=== PATIENT | female | born 1945 | race Caucasian/White ===

== ENCOUNTER 2022-04-23 08:57 | Outpatient (CLI) | payer OTHER | END 2022-04-23 08:58 | disposition home or self-care (01) | LOC: CSHRAD 08:57 | PROVIDERS: ATTEND Internal Medicine | DX: M54.50 Low back pain, unspecified (principal); M25.562 Pain in left knee; G89.29 Other chronic pain; M47.816 Spondylosis without myelopathy or radiculopathy, lumbar region | CPT/HCPCS: 72100 ==

== ENCOUNTER 2022-10-22 07:46 | Outpatient (CLI) | payer MEDICARE | END 2022-10-22 07:47 | disposition home or self-care (01) | LOC: CSHMRI 07:46 | PROVIDERS: ATTEND Psychiatry & Neurology Neurology | DX: G62.9 Polyneuropathy, unspecified (principal); M43.02 Spondylolysis, cervical region; M48.02 Spinal stenosis, cervical region; G95.89 Other specified diseases of spinal cord | CPT/HCPCS: 72141 ==

== ENCOUNTER 2023-01-11 09:01 | Inpatient (IN) | payer MEDICARE ==
[2023-01-11] MEDS ORDERED: Morphine 4 MG/ML VIAL ONE ×2 (09:45→12:38)
[2023-01-11 10:15] LABS: #Eosinphils 0.1 10x3/uL (0.0-0.5); #Monocytes 0.4 10x3/uL (0.0-1.1); #Neutrophils 9.3 10x3/uL (1.5-8.4); %Basophils 0.3 % (0.0-2.0); %Eosinophils 0.7 % (0.0-6.0); %Lymphocytes 8.4 % (18.0-47.0); %Monocytes 3.9 % (0.0-10.0); %Neutrophils 86.4 % (40.0-75.0); Hemoglobin 12.7 g/dL (12.0-15.5); Mean Corpuscular HGB CONC 34.9 g/dL (32.0-36.0); Mean Corpuscular Hemoglobin 30.2 pg (27.0-33.0); Mean Corpuscular Volume 86.5 fl (81.6-98.3); Mean Platelet Volume 9.4 fl (7.4-10.4); Platelet Count 313 10x3/uL (150-450); RBC Distribution Width 12.5 % (11.5-14.5); Red Blood Cell (RBC) Count 4.21 10x6/uL (3.90-5.03); White Blood Cell (WBC) Count 10.7 10x3/uL (3.5-10.5)
[2023-01-11 10:49] LABS: ALT (SGPT) 18 U/L (8-55); AST (SGOT) 23 U/L (5-34); Alkaline Phosphatase 67 U/L (40-110); Anion Gap 14 mmol/L (10-20); BUN (Urea Nitrogen) 13 mg/dL (9.8-20.1); Bilirubin, Total 1.2 mg/dL (0.2-1.2); Calc. Creatinine Clearance 0 mL/min (70-130); Calcium 8.5 mg/dL (7.8-10.44); Carbon Dioxide 17 mmol/L (23-31); Chloride 112 mmol/L (98-107); Estimated GFR 73; Globulin 2.2 g/dL (2.4-3.5); Glucose 107 mg/dL (83-110); Lipase 30 U/L (8-78); Potassium 3.3 mmol/L (3.5-5.1); Protein, Total 6.2 g/dL (5.8-8.1); Sodium 140 mmol/L (136-145)
[2023-01-11] MEDS ORDERED: Iopamidol 300 61% 100 ML VIAL FS ONE (12:02)
[2023-01-11 12:20] LABS: Bilirubin Neg (Negative); Blood, Urine Negative (Negative); Clarity Slightly Cloudy (Clear); Glucose, Urine (Dipstick) Normal (Negative); Ketone, Urine 5 mg/dL (Negative); Leukocyte Negative (Negative); Nitrite Negative (Negative); Protein, Urine (Dipstick) Negative (Neg-Trace); Specific Gravity, Urine 1.015 (1.005-1.030); Urobilinogen Normal mg/dL (Less than 2)
[2023-01-11] MEDS ORDERED: Ondansetron PF 4 MG/2 ML Vial ONE (12:50)
[2023-01-11] MEDS ORDERED: Piperacillin/Tazobactam 3.375 GM VIAL ONE (12:51)
[2023-01-11] MEDS ORDERED: HYDROcodone/Acetaminophen 10/325 mg Tablet PO PRN ×2 (13:31→13:37)
[2023-01-11 13:51] LABS: Lactic Acid 2.3 mmol/L (0.5-2.2)
[2023-01-11] MEDS ORDERED: Potassium Chloride 20 MEQ TAB PO SCH (14:00)
[2023-01-11] MEDS ORDERED: Sodium Bicarbonate 75 MEQ, Admixture Fee 1 EACH in Dextrose 5% in Water 1,000 ML IV SCH (14:30)
[2023-01-11] MEDS ORDERED: Potassium Chloride 20 MEQ TAB ONE (14:43)
[2023-01-11] MEDS ORDERED: Cyclobenzaprine 10 MG TAB PO PRN (15:00)
[2023-01-11] MEDS ORDERED: Carvedilol 6.25 MG TAB PO SCH (15:15)
[2023-01-11] MEDS ORDERED: Piperacillin/Tazobactam 3.375 GM in Sodium Chloride 0.9% 100 ML IVPB SCH (17:00)
[2023-01-11] MEDS: Piperacillin/Tazobactam 3.375 GM in Sodium Chloride 0.9% 100 ML IVPB SCH (19:47)
[2023-01-11 20:08] VITALS: BMI 23.3
[2023-01-11] MEDS: Rosuvastatin 20 MG TAB PO SCH (20:16)
[2023-01-11] MEDS: Carvedilol 6.25 MG TAB PO SCH (20:17)
[2023-01-11] MEDS: Zolpidem Tartrate 5 MG TAB PO SCH (20:17)
[2023-01-11] MEDS: Morphine 4 MG/ML VIAL SLOW IVP PRN (20:18)
[2023-01-11] MEDS ORDERED: Famotidine 20 MG TAB PO SCH (21:00)
[2023-01-12] MEDS: Acetaminophen 325 MG TAB PO PRN ×3 (01:21→20:15)
[2023-01-12] MEDS: Piperacillin/Tazobactam 3.375 GM in Sodium Chloride 0.9% 100 ML IVPB SCH ×3 (01:21→16:36)
[2023-01-12 05:20] LABS: #Eosinphils 0.1 10x3/uL (0.0-0.5); #Monocytes 0.5 10x3/uL (0.0-1.1); #Neutrophils 3.3 10x3/uL (1.5-8.4); %Basophils 0.6 % (0.0-2.0); %Eosinophils 1.3 % (0.0-6.0); %Lymphocytes 26.1 % (18.0-47.0); %Monocytes 9.8 % (0.0-10.0); Hemoglobin 11.8 g/dL (12.0-15.5); Mean Corpuscular HGB CONC 33.4 g/dL (32.0-36.0); Mean Corpuscular Hemoglobin 29.6 pg (27.0-33.0); Mean Corpuscular Volume 88.7 fl (81.6-98.3); Mean Platelet Volume 9.4 fl (7.4-10.4); Platelet Count 248 10x3/uL (150-450); RBC Distribution Width 12.7 % (11.5-14.5); Red Blood Cell (RBC) Count 3.98 10x6/uL (3.90-5.03); White Blood Cell (WBC) Count 5.3 10x3/uL (3.5-10.5)
[2023-01-12 05:28] LABS: Anion Gap 10 mmol/L (10-20); BUN (Urea Nitrogen) 8 mg/dL (9.8-20.1); Calc. Creatinine Clearance 48 mL/min (70-130); Calcium 8.2 mg/dL (7.8-10.44); Carbon Dioxide 24 mmol/L (23-31); Chloride 106 mmol/L (98-107); Estimated GFR 59; Glucose 97 mg/dL (83-110); Magnesium 1.8 mg/dL (1.6-2.6); Potassium 3.4 mmol/L (3.5-5.1); Sodium 137 mmol/L (136-145)
[2023-01-12] MEDS ORDERED: Potassium Chloride 20 MEQ TAB PO SCH (08:00)
[2023-01-12] MEDS: Famotidine 20 MG TAB PO SCH (09:37)
[2023-01-12] MEDS: Cholecalciferol 1,000 UNITS (25 MCG) TAB PO SCH (09:37)
[2023-01-12] MEDS: Carvedilol 6.25 MG TAB PO SCH ×2 (09:37→20:09)
[2023-01-12] MEDS: Clopidogrel Bisulfate 75 MG TAB PO SCH (09:38)
[2023-01-12] MEDS: Ondansetron PF 4 MG/2 ML Vial IVP PRN ×2 (09:47→16:28)
[2023-01-12 10:24] LABS: Lactic Acid 0.9 mmol/L (0.5-2.2)
[2023-01-12] MEDS: Morphine 4 MG/ML VIAL SLOW IVP PRN (16:27)
[2023-01-12] MEDS: Zolpidem Tartrate 5 MG TAB PO SCH (20:09)
[2023-01-12] MEDS: Rosuvastatin 20 MG TAB PO SCH (20:10)
[2023-01-13] MEDS: Piperacillin/Tazobactam 3.375 GM in Sodium Chloride 0.9% 100 ML IVPB SCH ×2 (01:08→08:58)
[2023-01-13] MEDS: Morphine 4 MG/ML VIAL SLOW IVP PRN (04:41)
[2023-01-13 04:45] LABS: #Eosinphils 0.2 10x3/uL (0.0-0.5); #Monocytes 0.8 10x3/uL (0.0-1.1); #Neutrophils 2.9 10x3/uL (1.5-8.4); %Basophils 0.5 % (0.0-2.0); %Eosinophils 3.5 % (0.0-6.0); %Lymphocytes 30.7 % (18.0-47.0); %Monocytes 13.8 % (0.0-10.0); %Neutrophils 51.3 % (40.0-75.0); Hemoglobin 12.3 g/dL (12.0-15.5); Mean Corpuscular HGB CONC 34.8 g/dL (32.0-36.0); Mean Corpuscular Hemoglobin 30.4 pg (27.0-33.0); Mean Corpuscular Volume 87.2 fl (81.6-98.3); Mean Platelet Volume 9.2 fl (7.4-10.4); Platelet Count 235 10x3/uL (150-450); RBC Distribution Width 12.4 % (11.5-14.5); Red Blood Cell (RBC) Count 4.05 10x6/uL (3.90-5.03); White Blood Cell (WBC) Count 5.7 10x3/uL (3.5-10.5)
[2023-01-13 04:52] LABS: Anion Gap 14 mmol/L (10-20); BUN (Urea Nitrogen) 9 mg/dL (9.8-20.1); Calc. Creatinine Clearance 51 mL/min (70-130); Calcium 8.4 mg/dL (7.8-10.44); Carbon Dioxide 22 mmol/L (23-31); Chloride 105 mmol/L (98-107); Estimated GFR 64; Glucose 95 mg/dL (83-110); Potassium 3.5 mmol/L (3.5-5.1); Sodium 137 mmol/L (136-145)
[2023-01-13] MEDS: Famotidine 20 MG TAB PO SCH (08:54)
[2023-01-13] MEDS: Cholecalciferol 1,000 UNITS (25 MCG) TAB PO SCH (08:54)
[2023-01-13] MEDS: Carvedilol 6.25 MG TAB PO SCH ×2 (08:54→22:00)
[2023-01-13] MEDS: Clopidogrel Bisulfate 75 MG TAB PO SCH (08:55)
[2023-01-13] MEDS: Ondansetron PF 4 MG/2 ML Vial IVP PRN (08:57)
[2023-01-13] MEDS ORDERED: Morphine 4 MG/ML VIAL SLOW IVP PRN (10:44)
[2023-01-13] MEDS: Dextrose 5 %-0.45 % NaCl 1,000 ML IV SCH (14:36)
[2023-01-13] MEDS: metroNIDAZOLE 500 MG in Premix Bag 1 BAG IVPB SCH ×2 (15:26→22:34)
[2023-01-13 18:04] LABS: SARS-CoV-2 NAA Rapid Test Not Detected (NotDetected)
[2023-01-13] MEDS: Cefepime 1 GM in Sodium Chloride 0.9% 100 ML IVPB SCH (18:37)
[2023-01-13] MEDS: Zolpidem Tartrate 5 MG TAB PO SCH (22:01)
[2023-01-13] MEDS: Rosuvastatin 20 MG TAB PO SCH (22:01)
[2023-01-13] MEDS: Acetaminophen 325 MG TAB PO PRN (22:37)
[2023-01-14 04:44] LABS: #Eosinphils 0.3 10x3/uL (0.0-0.5); #Monocytes 0.6 10x3/uL (0.0-1.1); #Neutrophils 2.8 10x3/uL (1.5-8.4); %Basophils 0.5 % (0.0-2.0); %Eosinophils 4.8 % (0.0-6.0); %Lymphocytes 36.2 % (18.0-47.0); %Monocytes 10.6 % (0.0-10.0); %Neutrophils 47.9 % (40.0-75.0); Mean Corpuscular HGB CONC 35.1 g/dL (32.0-36.0); Mean Corpuscular Hemoglobin 30.1 pg (27.0-33.0); Mean Corpuscular Volume 85.7 fl (81.6-98.3); Mean Platelet Volume 9.2 fl (7.4-10.4); Platelet Count 240 10x3/uL (150-450); RBC Distribution Width 12.1 % (11.5-14.5); Red Blood Cell (RBC) Count 3.99 10x6/uL (3.90-5.03); White Blood Cell (WBC) Count 5.9 10x3/uL (3.5-10.5)
[2023-01-14 04:57] LABS: Anion Gap 13 mmol/L (10-20); BUN (Urea Nitrogen) 7 mg/dL (9.8-20.1); CRP (Inflammatory) 1.81 mg/dL (= or < 0.5); Calc. Creatinine Clearance 56 mL/min (70-130); Calcium 8.4 mg/dL (7.8-10.44); Carbon Dioxide 23 mmol/L (23-31); Chloride 106 mmol/L (98-107); Estimated GFR 71; Glucose 121 mg/dL (83-110); Potassium 3.3 mmol/L (3.5-5.1); Sodium 139 mmol/L (136-145)
[2023-01-14] MEDS: metroNIDAZOLE 500 MG in Premix Bag 1 BAG IVPB SCH ×4 (05:30→23:36)
[2023-01-14] MEDS: Cefepime 1 GM in Sodium Chloride 0.9% 100 ML IVPB SCH ×2 (05:31→17:29)
[2023-01-14] MEDS: Dextrose 5 %-0.45 % NaCl 1,000 ML IV SCH ×2 (05:31→18:14)
[2023-01-14] MEDS: Famotidine 20 MG TAB PO SCH (08:01)
[2023-01-14] MEDS: Cholecalciferol 1,000 UNITS (25 MCG) TAB PO SCH (08:02)
[2023-01-14] MEDS: Clopidogrel Bisulfate 75 MG TAB PO SCH (08:02)
[2023-01-14] MEDS: Carvedilol 6.25 MG TAB PO SCH (08:02)
[2023-01-14] MEDS ORDERED: Potassium Chloride 20 MEQ in Premix Bag 1 BAG IVPB SCH (14:30)
[2023-01-14] MEDS ORDERED: Polyethylene Glycol 3350 17 GM Packet PO SCH (18:00)
[2023-01-14] MEDS: Zolpidem Tartrate 5 MG TAB PO SCH (20:53)
[2023-01-14] MEDS: Rosuvastatin 20 MG TAB PO SCH (20:53)
[2023-01-14] MEDS ORDERED: Amlodipine 10 MG TAB PO SCH (21:00)
[2023-01-15] MEDS: Cefepime 1 GM in Sodium Chloride 0.9% 100 ML IVPB SCH ×2 (04:49→16:06)
[2023-01-15] MEDS: metroNIDAZOLE 500 MG in Premix Bag 1 BAG IVPB SCH ×2 (06:00→14:37)
[2023-01-15] MEDS: Acetaminophen 325 MG TAB PO PRN (06:48)
[2023-01-15] MEDS: Cholecalciferol 1,000 UNITS (25 MCG) TAB PO SCH (10:08)
[2023-01-15] MEDS: Carvedilol 6.25 MG TAB PO SCH ×2 (10:09→22:52)
[2023-01-15] MEDS: Polyethylene Glycol 3350 17 GM Packet PO SCH (10:14)
[2023-01-15] MEDS: Famotidine 20 MG TAB PO SCH (10:14)
[2023-01-15] MEDS: Clopidogrel Bisulfate 75 MG TAB PO SCH (10:14)
[2023-01-15] MEDS ORDERED: Electrolyte Replacement Protocol 1 EACH FS SCH (17:00)
[2023-01-15] MEDS ORDERED: Magnesium 2 GM/50 ML(in water) 2 GM in Premix Bag 1 BAG IVPB SCH (18:00)
[2023-01-15] MEDS: Dextrose 5 %-0.45 % NaCl 1,000 ML IV SCH (22:51)
[2023-01-15] MEDS: Rosuvastatin 20 MG TAB PO SCH (22:52)
[2023-01-15] MEDS: Zolpidem Tartrate 5 MG TAB PO SCH (22:52)
[2023-01-16] MEDS: Cefepime 1 GM in Sodium Chloride 0.9% 100 ML IVPB SCH (05:25)
[2023-01-16] MEDS: metroNIDAZOLE 500 MG in Premix Bag 1 BAG IVPB SCH ×2 (05:32)
[2023-01-16 06:21] LABS: Anion Gap 15 mmol/L (10-20); BUN (Urea Nitrogen) 9 mg/dL (9.8-20.1); Calc. Creatinine Clearance 54 mL/min (70-130); Carbon Dioxide 21 mmol/L (23-31); Chloride 107 mmol/L (98-107); Estimated GFR 69; Glucose 103 mg/dL (83-110); Magnesium 2.1 mg/dL (1.6-2.6); Potassium 3.5 mmol/L (3.5-5.1); Sodium 139 mmol/L (136-145)
[2023-01-16] MEDS ORDERED: Potassium Chloride 20 MEQ TAB PO SCH (08:00)
[2023-01-16] MEDS ORDERED: Losartan 25 MG TAB PO SCH (09:00)
[2023-01-16] MEDS: Clopidogrel Bisulfate 75 MG TAB PO SCH (09:37)
[2023-01-16] MEDS: Carvedilol 6.25 MG TAB PO SCH (09:38)
[2023-01-16] MEDS: Famotidine 20 MG TAB PO SCH (09:40)
[2023-01-16] MEDS: Cholecalciferol 1,000 UNITS (25 MCG) TAB PO SCH (09:40)
[2023-01-16] MEDS: Polyethylene Glycol 3350 17 GM Packet PO SCH (09:40)
[2023-01-16 12:39] VITALS: TEMP 98.2
[2023-01-16 13:45] VITALS: BP 160/71
== END 2023-01-16 13:45 | disposition home or self-care (01) | DRG 391 ==
LOC: CSHERS 09:01 → CSHERHOLD 13:48 → CSHTELE 17:45
PROVIDERS: ADMIT Internal Medicine; ATTEND Family Medicine
DX: K57.32 Diverticulitis of large intestine without perforation or abscess without bleeding (principal); G93.41 Metabolic encephalopathy; E87.20 Acidosis, unspecified; I10 Essential (primary) hypertension; I25.10 Atherosclerotic heart disease of native coronary artery without angina pectoris; G47.30 Sleep apnea, unspecified; M19.90 Unspecified osteoarthritis, unspecified site; E87.6 Hypokalemia; E78.5 Hyperlipidemia, unspecified; T42.6X5A Adverse effect of other antiepileptic and sedative-hypnotic drugs, initial encounter; E78.00 Pure hypercholesterolemia, unspecified; F32.A Depression, unspecified; Z20.822 Contact with and (suspected) exposure to COVID-19; Z90.710 Acquired absence of both cervix and uterus; Z88.5 Allergy status to narcotic agent; Z88.8 Allergy status to other drugs, medicaments and biological substances; Z79.899 Other long term (current) drug therapy; Z90.49 Acquired absence of other specified parts of digestive tract; Z82.3 Family history of stroke
CPT/HCPCS: 36415; 71045; 74018; 74177; 80048; 80053; 81003; 83605; 83690; 83735; 85025; 86140; 87040; 96361; 96365; 96374; 96375; 96376; J0692; J2270; J2405; J2543; J3480; J3490; J7042; J7070; Q9967; U0002

== ENCOUNTER 2023-02-04 10:09 | Outpatient (CLI) | payer MEDICARE | END 2023-02-04 10:10 | disposition home or self-care (01) | LOC: CSHCT 10:09 | PROVIDERS: ATTEND Neurological Surgery | DX: G45.9 Transient cerebral ischemic attack, unspecified (principal); R90.82 White matter disease, unspecified | CPT/HCPCS: 70450 ==